=== PATIENT | female | born 1960 | race Hispanic/Latino ===

== ENCOUNTER 2017-09-17 13:51 | Inpatient (IN) | payer SELFPAY ==
[~2017-09-17] VITALS: Ht 157.5 cm; Wt 78.5 kg
[2017-09-17] VITALS (10 sets, daily range): BP systolic 132–171; BP diastolic 65–82
[2017-09-17] MEDS ORDERED: BIVALIRUDIN 250 MG/VIAL IV ONE (15:38)
[2017-09-17] MEDS ORDERED: NITROGLYCERIN 5 MG/ML 10 ML VIAL IV ONE (15:38)
[2017-09-17] MEDS ORDERED: LIDOCAINE HCL 2% 20ML ONE (15:38)
[2017-09-17] MEDS ORDERED: IOPAMIDOL-370 75 ML VIAL IV ONE (15:38)
[2017-09-17] MEDS ORDERED: ISOVUE-370 50ML VIAL IV ONE (15:38)
[2017-09-17] MEDS ORDERED: IOPAMIDOL-370 100 ML VIAL IV ONE (15:38)
[2017-09-17] MEDS ORDERED: MIDAZOLAM HCL 1 MG/ML 2ML VIAL ONE (16:14)
[2017-09-17] MEDS ORDERED: SODIUM CHLORIDE 0.9% 1000ML 1,000 ML IV SCH (17:13)
[2017-09-17] MEDS ORDERED: ASPI-555 PO (17:21)
[2017-09-17] MEDS ORDERED: SODIUM CHLORIDE 0.9% 1000ML 1,000 ML IV ONE (17:53)
[2017-09-17] MEDS ORDERED: METOPROLOL TARTRATE 25 MG TAB PO SCH (21:00)
[2017-09-17] MEDS ORDERED: ATORVASTATIN CALCIUM 20 MG TABLET PO SCH (21:00)
[2017-09-18 03:02] VITALS: BP 113/56
[2017-09-18 04:30] LABS: HEMATOCRIT 38.9 % (36-48); MEAN CORPUSCULAR HEMOGLOBIN 28.5 pg (27.0-33.0); MEAN CORPUSCULAR VOLUME 83.8 fL (79-99); PLATELET COUNT (AUTO) 280 K/uL (130-400); RED BLOOD CELL COUNT(AUTO) 4.64 MIL/uL (4.00-5.50); RED CELL DISTRIBUTION WIDTH 13.1 % (11.0-15.5); WHITE BLOOD COUNT (AUTO) 9.5 K/uL (4.8-10.8)
[2017-09-18 04:47] LABS: CREATININE 0.7 mg/dL (0.5-1.5); POTASSIUM 3.9 mmol/L (3.5-5.1)
[2017-09-18 07:00] VITALS: BP 127/73
[2017-09-18] MEDS ORDERED: ALPR0.5T8 PO (08:01)
[2017-09-18] MEDS ORDERED: SIMV10TA6 PO (08:01)
[2017-09-18] MEDS ORDERED: BENA40TA9 PO (08:01)
[2017-09-18] MEDS ORDERED: ASPIRIN 81MG TAB.CHEW PO SCH (09:00)
[2017-09-18 09:26] LABS: CHOLESTEROL 153 mg/dL (<200); HDL CHOLESTEROL 35 mg/dL (35-85); LDL DIRECT 103 mg/dL (0-99); TRIGLYCERIDES 180 mg/dL (30-200)
[2017-09-18] MEDS ORDERED: ATOR20TA65 PO (10:44)
[2017-09-18 11:00] VITALS: BP 131/67
[2017-09-18 16:00] VITALS: BP 145/65
== END 2017-09-18 17:32 | disposition home or self-care (01) | DRG 287 ==
LOC: 2DH 15:11 → UNDOADMOB 15:11 → OBSVTOIN 15:11 → EDHIP 15:11
PROVIDERS: ADMIT Internal Medicine Nephrology; ATTEND Internal Medicine Nephrology
PROC: 4A023N7 Measurement of Cardiac Sampling and Pressure, Left Heart, Percutaneous Approach (ICD-10-PCS; principal; 2017-09-17)
PROC: B2111ZZ Fluoroscopy of Multiple Coronary Arteries using Low Osmolar Contrast (ICD-10-PCS; 2017-09-17)
PROC: B2151ZZ Fluoroscopy of Left Heart using Low Osmolar Contrast (ICD-10-PCS; 2017-09-17)
PROC: B41F1ZZ Fluoroscopy of Right Lower Extremity Arteries using Low Osmolar Contrast (ICD-10-PCS; 2017-09-17)
DX: I25.10 Atherosclerotic heart disease of native coronary artery without angina pectoris (principal); Q24.5 Malformation of coronary vessels; E66.9 Obesity, unspecified; E78.5 Hyperlipidemia, unspecified; I10 Essential (primary) hypertension; Z79.899 Other long term (current) drug therapy; Z68.31 Body mass index [BMI] 31.0-31.9, adult
CPT/HCPCS: 36415; 80048; 80061; 85027; 93458; 99152; 99153; C1760; C1894; J0583; J1644; J2250; J3490; J7030; Q9967

== ENCOUNTER → 2020-03-19 | Outpatient (CLI) | payer MEDICARE ==
[~2020-03-19] MED LIST: ALPR0.5T8 PO; ASPI-556 PO; ATOR20TA65 PO; BENA40TA9 PO
== END | disposition home or self-care (01) ==
LOC: SHCH 11:28
PROVIDERS: ATTEND Internal Medicine Cardiovascular Disease
DX: I35.8 Other nonrheumatic aortic valve disorders (principal); I10 Essential (primary) hypertension
CPT/HCPCS: 93306; 93356